=== PATIENT | male | born 1975 | race Caucasian/White ===

== ENCOUNTER 2018-06-25 16:35 | Emergency (ER) | payer OTHER ==
[2018-06-25] MEDS ORDERED: Sodium Chloride 0.9% 10 ML Syringe FLUSH PRN (16:57)
[2018-06-25] MEDS ORDERED: Sodium Chloride 0.9% 1,000 ML IV SCH (17:00)
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
--- NOTE | 2018-06-28 12:09 | CR ---
Chest: Portable view of the chest was obtained. Comparison: No prior chest x-ray. Heart size and mediastinum are normal. Lungs are clear without acute parenchymal change. Bony structures are grossly intact. Impression: 1. Nothing acute is seen on portable chest x-ray. Diagnostic code #1
== END 2018-06-25 19:13 | disposition home or self-care (01) ==
LOC: JD.ED 16:35
DX: R07.89 Other chest pain (principal); M54.6 Pain in thoracic spine; Z79.899 Other long term (current) drug therapy; F17.210 Nicotine dependence, cigarettes, uncomplicated
CPT/HCPCS: 36415; 71045; 80053; 84443; 84484; 85025; 85379; 93005; 96360; 99285; J7040; J7050; 93010; 99284-25

== ENCOUNTER 2019-01-19 00:49 | Emergency (ER) | payer OTHER ==
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
== END 2019-01-19 03:05 | disposition home or self-care (01) ==
LOC: JD.ED 00:49
DX: I10 Essential (primary) hypertension (principal); E78.00 Pure hypercholesterolemia, unspecified; K21.9 Gastro-esophageal reflux disease without esophagitis; E03.9 Hypothyroidism, unspecified; F41.9 Anxiety disorder, unspecified; Z79.899 Other long term (current) drug therapy
CPT/HCPCS: 36415; 80053; 85025; 99282; 99283